=== PATIENT | male | born 1955 | race Caucasian/White ===

== ENCOUNTER → 2017-06-20 | Outpatient (CLI) | payer OTHER ==
[~2017-06-20] MED LIST: ALBU90OI6 INH; Aspirin EC81 MG PO; FLUT1DIS5 INH; OMEPRAZOLE MAGN20 MG PO; TAMS.4ER PO; TEMA15 PO; ZESTORETIC 20-251 EA PO
[2017-06-20 21:03] LABS: Protein, Urine Quantitative 289.1 mg/dL (0.0-11.9)
== END ==
LOC: LAB SHORT 16:18
PROVIDERS: Internal Medicine
DX: N18.3 Chronic kidney disease, stage 3 (moderate) (principal)
CPT/HCPCS: 81050; 82570; 84156